=== PATIENT | male | born 1975 | race Hispanic/Latino ===

== ENCOUNTER 2022-11-25 20:41 | Emergency (ER) | payer BC ==
[~2022-11-25] VITALS: Ht 177.8 cm; Wt 160.7 kg
[2022-11-25 22:16] LABS: BASOPHILS % (AUTO) 0.2 % (0.0-5.0); EOSINOPHILS % (AUTO) 1.4 % (0.0-8.0); HEMATOCRIT 39.7 % (42-54); MEAN CORPUSCULAR HEMOGLOBIN 27.2 pg (27.0-33.0); MEAN CORPUSCULAR VOLUME 79.9 fL (79-99); MONOCYTES % (AUTO) 8.8 % (3.0-13.0); NEUTROPHILS % (AUTO) 74.7 % (40.0-77.0); PLATELET COUNT (AUTO) 285 K/uL (130-400); RED BLOOD CELL COUNT(AUTO) 4.97 MIL/uL (4.50-6.20); RED CELL DISTRIBUTION WIDTH 13.1 % (11.0-15.5); WHITE BLOOD COUNT (AUTO) 10.5 K/uL (4.8-10.8)
[2022-11-25 22:25] LABS: CREATININE 1.4 mg/dL (0.5-1.5); POTASSIUM 3.3 mmol/L (3.5-5.1)
[2022-11-25] MEDS ORDERED: 0.9%NACL 1000ML 1,000 ML IV ONE (22:30)
[2022-11-25] MEDS ORDERED: KCL 20 MEQ ERTAB PO ONE (22:30)
[2022-11-25 22:32] LABS: APPEARANCE,URINE TURBID (CLEAR); BILIRUBIN,URINE NEGATIVE (NEGATIVE); COLOR,URINE YELLOW (YELLOW); GLUCOSE, URINE (UA) >=1000 mg/dL (NEGATIVE); KETONES,URINE 20 mg/dL (NEGATIVE); LEUKOCYTE ESTERASE ,URINE 500 Leu/uL (NEGATIVE); NITRATE,URINE NEGATIVE (NEGATIVE); OCCULT BLOOD,URINE SMALL (NEGATIVE); PH,URINE 5.5 (5.0-8.0); PROTEIN,URINE 70 mg/dL (NEGATIVE); UROBILINOGEN,URINE 0.2 mg/dL (0.2-1.0)
[2022-11-25 22:34] LABS: ALBUMIN 2.6 g/dL (3.5-5.0)
[2022-11-25 22:36] LABS: CREATINE KINASE, TOTAL 57 U/L (21-232)
[2022-11-25] MEDS ORDERED: IOHEXOL 350 MG/ML 100ML INFUS..BTL IV ONE (22:39)
[2022-11-25 22:41] LABS: BACTERIA,URINE MANY /HPF (None Seen); MUCUS,URINE RARE LPF (None Seen); SQUAMOUS EPITHELIAL CELL,UR MOD /HPF (0-2); WBC,URINE TNTC /HPF (0-1)
[2022-11-25 22:46] LABS: LDL DIRECT 94 mg/dL (0-99)
[2022-11-25] MEDS ORDERED: CEFTRIAXONE 1G VIAL IVP ONE (23:00)
[2022-11-26] MEDS ORDERED: IOHEXOL 350 MG/ML 100ML INFUS..BTL IV ONE (00:01)
[2022-11-26] MEDS ORDERED: ASPIRIN 81MG CHEW TAB PO ONE (02:00)
[2022-11-26] MEDS ORDERED: KETOROLAC 15MG/ML VIAL (15MG/ML) IV ONE (02:30)
[2022-11-26] MEDS ORDERED: DiphenhydrAMINE HCL 50 MG/ML VIAL IV ONE (04:30)
[2022-11-26] MEDS ORDERED: PROCHLORPERAZINE 10MG/2ML INJ IV ONE (04:30)
[2022-11-26 05:46] VITALS: BP 100/51
== END 2022-11-26 06:17 | disposition short-term general hospital (02) ==
LOC: EDH 20:41
DX: I63.9 Cerebral infarction, unspecified (principal); E11.9 Type 2 diabetes mellitus without complications; R29.810 Facial weakness; Z20.822 Contact with and (suspected) exposure to COVID-19; Z87.440 Personal history of urinary (tract) infections; Z90.49 Acquired absence of other specified parts of digestive tract; Z98.890 Other specified postprocedural states
CPT/HCPCS: 99291; 70496; 96361; 96374; 71045; 87635; 82550; 83721; 84484; 80053; 83880; 85025; 87077; 87088; 87186; 82948; 81001; 36415; 70498; 93005; 70450; 70551; 96375; 70547; 70544; C9803; J7030; J0696; Q9967 ×2; J1200; J0780; J1885